=== PATIENT | male | born 1980 | race African-American/Black ===

== ENCOUNTER 2017-01-01 10:46 | Emergency (ER) | payer OTHER ==
--- NOTE | ~2017-01-01 | CR151 ---
[facility] A Service of [facility] & [facility] RADIOLOGY TEXT RESULTS PATIENT: CHEPE SELLERS LOCATION: SED : 84 UNIT #: [id number] AGE: [address]: Dane Woods MD SEX: M ORDER DR: [id number] [address] [address] [id number] E MR#: [id number] Acc #: [id number] NAME: CHEPE SELLERS : 1980 SEX: M STUDY DATE/TIME: 01/01/2017 11:03 UNIT: SED ROOM: STUDY DESCRIPTION: CR Hip Min 2 Views Rt Attending Physician: Dane Woods M.D. Ordering Physician: Dane Woods M.D. Primary Care Physician: No Primary Care Physician MEDICAL IMAGING REPORT This report is preliminary unless electronic signature is present. EXAM AP pelvis and AP and frog view right hip 01/01/2017 HISTORY Right hip pain for 1 month; no known injury. FINDINGS Normal. Dictated by... Don Gonzalez M.D. THIS IS AN ELECTRONICALLY VERIFIED REPORT Don Gonzalez M.D. at 01/02/2017 9:40 AM SIN/arianne TD: 01/01/2017 12:17 JOB #: [id number] MEDICAL IMAGING REPORT Page 1 of 1
[2017-01-01 10:36] LABS: URINE SOURCE CLEAN CATCH
[2017-01-01 10:40] LABS: URINE APPEARANCE CLEAR; URINE BILIRUBIN NEG (NEG); URINE BLOOD NEG (NEG); URINE COLOR YELLOW; URINE GLUCOSE NEG (NORM); URINE KETONE NEG (NEG); URINE LEUKOCYTE ESTERASE NEG (NEG); URINE NITRATE NEG (NEG); URINE PROTEIN NEG (NEG); URINE SPECIFIC GRAVITY 1.025 (1.003-1.035); URINE UROBILINOGEN 0.2 MG/DL (NORM)
[2017-01-01 10:45] LABS: MICRO INDICATED? NO
== END 2017-01-01 11:43 | disposition home or self-care (01) ==
LOC: SED 10:46
PROVIDERS: Emergency Medicine
DX: S39.011A Strain of muscle, fascia and tendon of abdomen, initial encounter (principal); F17.200 Nicotine dependence, unspecified, uncomplicated; X58.XXXA Exposure to other specified factors, initial encounter; Y92.9 Unspecified place or not applicable
CPT/HCPCS: 73502; 81003; 99283